=== PATIENT | male | born 2000 | race Caucasian/White ===

== ENCOUNTER 2018-02-18 18:22 | Observation (INO) ==
--- NOTE | 2018-02-18 18:41 | Emergency Department Note ---
Disposition Clinical Impression: Malaise and fatigue Concussion Qualifiers: Encounter type: initial encounter Loss of consciousness presence/duration: with LOC of 30 min or less Qualified Code(s): S06.0X1A - Concussion with loss of consciousness of 30 minutes or less, initial encounter Disposition: Admitted As Inpatient Condition: Undetermined Referrals: NONE,PCP [Primary Care Provider] - Forms: ED Satisfaction Letter Time of Disposition: 19:45 (Dr Schuster accepted him for Obs) Head Injury HPI - General Chief complaint: ED Head Injury Stated complaint: head injury with vomiting Source: patient, family Limitations: no limitations Nursing Notes Reviewed: Yes Vital Signs Reviewed: Yes - History of Present Illness HPI Narrative: Patient is a pleasant 17-year-old male with no significant PMH who is presenting to [facility] Emergency Room with a chief complaint off concussion. Apparently patient was seen earlier today for the same reason please refer to the previous note for full documentation. Patient has a history of seizure once when he was a child otherwise since then he has been free from any seizure attack. Today he fell while he was walking because of the slipped floor. He had the right side of his forehead and lost consciousness for about 5-10 minutes. He left home with instructions to return back if the headache continues. CT scan earlier today revealed no intracranial hemorrhage. Patient returned back because off headache and vomiting. Repeated neurological exam is totally normal nonfocal. Patient denies any fever, chills or night sweats. Pt also denies any eye pain or visual disturbances. There is no sore throat, nasal drainages or facial congestion. There is no chest pain, palpitations or racing heart. Pt also denies any shortness of breath, cough or chest congestion. There is no abdominal pain, nausea, vomiting or diarrhea. There is no urgency, frequency or dysuria. There is no muskulo-skeletal pain, arthralgia or back pain. Patient also denies any rash, edema or pruritus. Other than the headache, no other neurological manifestations, no vertigo or weakness. The patient also denies any anxiety, depression, hallucinations and has no homicidal or suicidal ideations. There is no polyuria, polydipsia or recent weight change. There is no easy bruising or bleeding. Review of other systems is otherwise negative except above. Pt Subjective Complaint: head injury Onset (ago): hour(s) Mechanism of Injury: fall from ground level Place: home Loss of Consciousness: yes - Related Data Home Medications Medication Instructions Recorded Confirmed No Known Home Drugs 02/18/18 02/18/18 Allergies/Adverse reactions: Allergies Allergy/AdvReac Type Severity Reaction Status Date / Time No Known Allergies Allergy Verified 02/18/18 09:08 All systems ED: reviewed and negative except as stated. Review of Systems: As Per HPI Constitutional: Denies: fever, chills, weakness Eyes: Denies: eye pain, eye discharge ENT ED: Denies: ear pain, throat pain Cardiovascular: Denies: chest pain, palpitations Respiratory: Denies: cough, dyspnea Gastrointestinal: Denies: abdominal pain, nausea Genitourinary: Denies: urgency, dysuria, frequency Musculoskeletal: Denies: back pain, neck pain Integumentary: Denies: rash, abrasion, lesions Neurological: Reports: headache. Denies: weakness, numbness Past Medical History - Past Medical History Medical history: Reports: seizures Surgical history: Reports: no surgical history Psychiatric history: Reports: anxiety, bipolar - Social History Smoking Status: Current every day smoker Smokeless Tobacco Status: No Alcohol use: Reports: rarely, recent Drug use: Reports: none, marijuana Physical Exam - General Limitations: no limitations General appearance: alert, in no apparent distress - Head Head exam: atraumatic, normocephalic, normal inspection, other (there is a bony prominence lump on right foregead about nickel size) - Eye Eye exam: Present: normal appearance, PERRL, EOMI - Expanded Eye Exam Pupils: Bilateral: reactive Sclera/Conjunctival: bilateral: normal inspection Cornea: bilateral: Normal Inspection Posterior chamber: bilateral: normal inspection - ENT ENT exam: normal exam, normal oropharynx, mucous membranes moist - Expanded ENT Exam External ear exam: Present: normal external inspection Mouth exam: Present: normal external inspection Teeth exam: Present: normal inspection Throat exam: Present: normal inspection - Neck Neck exam: Present: normal inspection, full ROM, trachea midline - Chest Chest inspection: Present: normal inspection, symmetric chest wall rise - Respiratory Respiratory exam: Present: normal lung sounds bilaterally - Cardiovascular Cardiovascular exam: Present: regular rate, normal rhythm, normal heart sounds - Abdominal Exam Abdominal exam: Present: soft, Non-Tender. Absent: tenderness, distention, guarding, rebound, rigidity - Extremities Exam Extremities exam: Present: normal inspection, full ROM. Absent: tenderness, pedal edema - Expanded Upper Extremity Exam Shoulder exam: Present: normal inspection, full ROM Arm exam: Present: normal inspection, full ROM Elbow exam: Present: normal inspection, full ROM Forearm/Wrist exam: Present: normal inspection, full ROM Hand exam: Present: normal inspection, full ROM Vascular exam: Normal: capillary refill, radial pulse - Expanded Lower Extremity Exam Hip/Pelvis exam: Present: normal inspection, full ROM Upper leg exam: Present: normal inspection, full ROM Knee exam: Present: normal inspection, full ROM Lower leg exam: Present: normal inspection, full ROM Ankle exam: Present: normal inspection, full ROM Foot/toe exam: Present: normal inspection, full ROM Neurovascular/Tendon exam: Absent: motor deficit, sensory deficit, tendon deficit - Back Exam Back exam: Present: normal inspection, full ROM. Absent: tenderness - Neurological Exam Neurological exam: Present: alert, oriented X3, CN II-XII intact, normal gait - Expanded Neurological Exam Patient oriented to: Present: person, place, time Speech: Present: fluid speech Cranial nerves: EOM function (II, III, IV, ): Normal, facial sensation (V): Normal, facial palsy (VII): Normal, gag reflex (IX): Normal, spinal accessory function (XI): Normal, tongue deviation (XII): Normal Cerebellar function: finger to nose: Normal, heel to choudhury: Normal Motor strength - LUE: 5/5 Motor strength - RUE: 5/5 Motor strength - LLE: 5/5 Motor strength - RLE: 5/5 Sensory exam upper extremity: light touch: Normal Sensory exam lower extremity: light touch: Normal Coma Scale Eye Opening: Spontaneous Coma Scale Motor Response: Obeys Commands Coma Scale Verbal Response: Oriented Coma Scale Total: 15 - Psychiatric Psychiatric exam: Present: normal affect, normal mood - Skin Skin exam: Present: warm, dry, intact, normal color Course Vital Signs Temperature 97.5 F L 02/18/18 18:23 Pulse Rate 87 02/18/18 18:23 Respiratory Rate 18 02/18/18 18:23 Blood Pressure 137/86 02/18/18 18:23 O2 Sat by Pulse Oximetry 98 02/18/18 18:23 Temperature 97.5 F L 02/18/18 18:23 Pulse Rate 87 02/18/18 18:23 Respiratory Rate 18 02/18/18 18:23 Blood Pressure 137/86 02/18/18 18:23 O2 Sat by Pulse Oximetry 98 02/18/18 18:23 Oxygen Delivery Oxygen Delivery Room Air Head Injury - Differential Diagnosis Differential Diagnosis: Likely: concussion without loss of consciousness, closed head injury - Medical Records Medical records reviewed: Yes I reviewed the patient's medical records. - Lab Data Lab results reviewed: Yes I reviewed the patient's lab results. - Radiology Data Radiology results reviewed: Yes I reviewed the patient's radiology results.
[2018-02-18] MEDS ORDERED: Ondansetron 4 MG/2 ML VIAL IVP ONE (18:53)
[2018-02-18] MEDS ORDERED: 0.9 % Sodium Chloride 1,000 ML IVC ONE (18:53)
[2018-02-18 19:16] LABS: Hematocrit 47.1 % (37.5-50.1); Hemoglobin 16.6 g/dL (12.9-16.9); Mean Corpuscular HGB Conc 35.2 g/dL (31.6-35.5); Mean Corpuscular Hemoglobin 29.1 pg (28.0-33.3); Mean Corpuscular Volume 82.5 fL (83.0-100.0); Platelet Count 267 K/mcL (140-400); Red Blood Count 5.71 M/mcL (4.19-5.50); Red Cell Distribution Width 12.9 % (11.5-14.5)
[2018-02-18 19:30] LABS: Bilirubin,Urine Negative (Negative); Blood,Urine Trace-intact (Negative); Clarity,Urine Clear (Clear); Color,Urine Yellow (Yellow); Glucose,Urine (UA) Normal (Normal); Ketones,Urine Negative (Negative); Leukocyte Esterase,Urine Negative (Negative); Nitrite,Urine Negative (Negative); Protein,Urine >=300 mg/dL (Neg-Trace); Specific Gravity,Urine >= 1.030 (1.010-1.025); Urobilinogen,Urine Normal (Normal)
[2018-02-18 19:31] LABS: BUN/Creatinine Ratio 9 (6-26); Blood Urea Nitrogen 12 mg/dL (6-20); Calcium 10.1 mg/dL (8.6-10.3); Carbon Dioxide 28 mEq/L (23-29); Chloride 105 mEq/L (98-107); Glucose 101 mg/dL (70-105); Osmolality,Calculated 292 (280-300); Potassium 4.9 mEq/L (3.5-5.1); Sodium 141 mEq/L (136-145); eGFR For Non-African Americans > 60
[2018-02-18 19:48] LABS: Amphetamine Screen,Urine Negative ng/mL (Cutoff=1000); Barbiturate Screen,Urine Negative ng/mL (Cutoff=200); Benzodiazepines Screen,Urine Negative ng/mL (Cutoff=200); Cannabinoid Screen,Urine Positive ng/mL (Cutoff = 50); Cocaine Screen,Urine Negative ng/mL (Cutoff= 300); Opiate Screen,Urine Negative ng/mL (Cutoff=300); Phencyclidine Screen,Urine Negative ng/mL (Cutoff=25)
[2018-02-18 19:49] LABS: Squamous Epithelial Cell,Urine Few per lpf (None-Few); WBC,Urine 15-30 per hpf (0-3)
[2018-02-18 19:50] LABS: Uric Acid Crystals,Urine Present
[2018-02-18] MEDS ORDERED: Naloxone 0.4 MG/ML INJ IVP PRN (20:57)
[2018-02-18] MEDS ORDERED: Acetaminophen 325 MG TABLET PO PRN (21:14)
[2018-02-18] MEDS ORDERED: Ondansetron 4 MG/2 ML VIAL IVP PRN (21:15)
[2018-02-19 06:39] LABS: Basophils # 0.1 K/mcL (0.0-0.2); Basophils % 0.5 %; Eosinophils # 0.1 K/mcL (0.0-0.6); Eosinophils % 0.7 %; Hematocrit 42.3 % (37.5-50.1); Hemoglobin 14.7 g/dL (12.9-16.9); Immature Granulocytes % 0.4 % (0-4); Lymphocytes # 2.2 K/mcL (0.6-4.6); Lymphocytes % 20.2 %; Mean Corpuscular HGB Conc 34.8 g/dL (31.6-35.5); Mean Corpuscular Hemoglobin 29.1 pg (28.0-33.3); Mean Corpuscular Volume 83.6 fL (83.0-100.0); Mean Platelet Volume 11.1 fL (9.4-12.4); Monocytes # 0.8 K/mcL (0.0-1.3); Monocytes % 7.4 %; Neutrophils # 7.7 K/mcL (1.6-8.9); Platelet Count 255 K/mcL (140-400); Red Blood Count 5.06 M/mcL (4.19-5.50); Red Cell Distribution Width 13.2 % (11.5-14.5); Segmented Neutrophils % 70.8 %
[2018-02-19] MEDS: *HR* HYDROcodone/Acet 5/325 mg TABLET PO PRN ×3 (06:48→14:23)
[2018-02-19 07:02] LABS: Blood Urea Nitrogen 12 mg/dL (6-20); Calcium 9.4 mg/dL (8.6-10.3); Carbon Dioxide 27 mEq/L (23-29); Chloride 108 mEq/L (98-107); Glucose 96 mg/dL (70-105); Magnesium 1.6 mg/dL (1.6-2.6); Osmolality,Calculated 294 (280-300); Potassium 4.3 mEq/L (3.5-5.1); Sodium 142 mEq/L (136-145)
[2018-02-19 07:04] LABS: BUN/Creatinine Ratio 9 (6-26); eGFR For Non-African Americans > 60
[2018-02-19 14:35] VITALS: BP 127/65
--- NOTE | 2018-02-19 15:39 | Internal Med History&Physical ---
Date of Encounter: 02/19/18 Time of Encounter: 15:05 Assessment and Plan (1) Concussion with loss of consciousness Current visit: No Status: Acute No new symptoms have occurred. Headache has improved. Drug screen positive for THC. Qualifiers: Encounter type: initial encounter Qualified Code(s): S06.0X9A - Concussion with loss of consciousness of unspecified duration, initial encounter (2) Leukocytosis Current visit: Yes Status: Acute Now resolved. No left shift noted on follow-up labs. Qualifiers: Leukocytosis type: unspecified Qualified Code(s): D72.829 - Elevated white blood cell count, unspecified Internal Medicine - H&P: HPI Chief complaint: Fall and head trauma Admitted From: Emergency Dept Plans for Post Hospital Care: Home History of present illness: Mr. Palacios is a 17 year old male who came to emergency room a second time after experiencing a fall at home. He reports he was on steps at his parents home earlier in the morning and slipped on a wet step. His right temporal area hit a corner of a step causing syncopal episode. After a short time (estimated 2 minutes) his mother found him on the ground and aroused him. No visible blood or lacerations were noted. He had a large right temporal area hematoma. He was brought to emergency room and evaluated. CT scan showed no intracranial abnormalities of concern. He was treated and discharged home. A short while later while at his girlfriend's house he had several episodes of vomiting and worsening headache. He returned to emergency room and was admitted to [facility] for ongoing care needs. He states he feels improved at present time and stable for discharge home. He reports no further vomiting since arriving at his hospital room. He reports his headache has lessened. He has tolerated 2 meals and ambulated to the bathroom without difficulty. Past Med Surg Social Fam HX - Past Medical History Medical history: seizures Additional medical history: Febrile Psychiatric history: anxiety, bipolar - Past Surgical History Surgical History: no surgical history - Social History Smoking Status: Current every day smoker Smokeless Tobacco Status: No Alcohol use: rarely, recent Drug use: marijuana - Family History Mother Hx Family Psychosocial Disorders: Yes (anxiety and bipolar) Father History Unknown: Yes Internal Medicine - H&P: Meds No Known Home Drugs 02/18/18 [History] 3 Allergy/AdvReac Type Severity Reaction Status Date / Time No Known Allergies Allergy Verified 02/18/18 09:08 All Systems PM: A 10-system review of systems was performed and is negative for pertinent findings except as documented above in the HPI. Review of systems: Gen.: He states his weight is stable the past few months Cardiovascular: He denies hypertension MT heart failure angina DVT or pulmonary embolus Respiratory: He has smoked since age 15. He denies chronic lung disease. GI: He denies disorders of his liver gallbladder or exocrine pancreas : He denies hematuria dysuria or kidney stones Neurologic: He had febrile seizure in infancy. He denies seizure since then or any falls syncope or strokes otherwise. Endocrine: He denies diabetes thyroid disease or hyperlipidemia Hematology/oncology: He denies blood disorders cancers or anemia Psychiatric: He has anxiety and bipolar disorder but is not receiving medication at this time [place] skeletal: He denies bone joint or muscle disorders. - Constitutional Vitals: Temp Pulse Resp BP Pulse Ox 98.3 F 62 16 127/65 98 02/19/18 14:00 02/19/18 14:00 02/19/18 14:00 02/19/18 14:00 02/19/18 14:00 Exam: Gen.: He is well-developed well-nourished male lying in bed who appears in no acute distress at present time HEENT: Head is normocephalic. He has a skin abrasion/contusion in the right temporal area with very minimal residual hematoma. Eyes: EOMI. There is no scleral icterus. Mouth: Mucosa is moist. Neck: Supple and nontender. There is no thyromegaly or adenopathy noted. Heart: Regular without murmurs gallops or ectopics Lungs: No wheezes or crackles are heard. Abdomen: Soft and nontender. No masses or guarding are noted. Extremities: There is no cyanosis edema or clubbing noted. Dorsalis pedis and posttibial pulses are 1-2 over 2 bilaterally. Neurologic: Mental status: He is talkative and a good historian. Cranial nerves : Smile is symmetric. Forehead wrinkles bilaterally. Tongue protrudes midline. EOMI. Motor: There is no pronator drift. He is able to lift both legs off the bed. Ankle flexion and extension strength is 2/2 bilaterally against resistance. Cerebellar: Finger to nose is intact bilaterally. Skin: Warm and dry Internal Med - H&P Results - Labs CBC & Chem 7: 02/19/18 05:41 02/19/18 05:41 Labs: Short CBC 02/19/18 Range/Units 05:41 WBC 10.9 (4.3-11.1) K/mcL Hgb 14.7 D (12.9-16.9) g/dL Hct 42.3 (37.5-50.1) % Plt Count 255 (140-400) K/mcL Neutrophils # 7.7 (1.6-8.9) K/mcL BMP 02/19/18 05:41 Sodium 142 Potassium 4.3 Chloride 108 H Carbon Dioxide 27 BUN 12 Creatinine 1.30 Glucose 96 Calcium 9.4 - VTE Reasons for not Prescribing Prophylaxis: Treatment not Indicated - Low risk for VTE
--- NOTE | 2018-02-19 15:49 | Discharge Summary ---
Date of Encounter: 02/19/18 Time of Encounter: 15:05 - Discharge Diagnosis (1) Concussion with loss of consciousness Priority: Primary Status: Acute Qualifiers: Encounter type: initial encounter Qualified Code(s): S06.0X9A - Concussion with loss of consciousness of unspecified duration, initial encounter (2) Leukocytosis Priority: Secondary Status: Resolved Qualifiers: Leukocytosis type: unspecified Qualified Code(s): D72.829 - Elevated white blood cell count, unspecified Hospital course: Mr. Palacios is a 17 year old male who came to emergency room a second time after experiencing a fall at home. He reports he was on steps at his parents home earlier in the morning and slipped on a wet step. His right temporal area hit a corner of a step causing syncopal episode. After a short time (estimated 2 minutes) his mother found him on the ground and aroused him. No visible blood or lacerations were noted. He reports a large right temporal area hematoma. He was brought to emergency room and evaluated. CT scan showed no intracranial abnormalities of concern. He was treated and discharged home. A short while later while at his girlfriend's house he had several episodes of vomiting and worsening headache. He returned to emergency room and was admitted to [facility] for ongoing care needs. Initial orders were written by the emergency room physician. I saw him on February 19 and performed the history and physical. He felt improved when I saw him and reported no further vomiting since admission. Headache had lessened. He felt stable for discharge home which I felt was reasonable. He will follow with a PCP at [facility] within 1 week. Follow-up lab work showed WBC normal with no left shift present. No further workup or treatment was done. - Time Spent with Patient Total time spent providing and/or coordinating discharge services: - Discharge Medications Home Medications: No Known Home Drugs 02/18/18 [History] Allergies/Adverse Reactions: 3 Allergy/AdvReac Type Severity Reaction Status Date / Time No Known Allergies Allergy Verified 02/18/18 09:08 Date of admission: 02/18/18 20:36 Primary care physician: PCP NONE - Constitutional Vitals: Temp Pulse Resp BP Pulse Ox 98.3 F 62 16 127/65 98 02/19/18 14:00 02/19/18 14:00 02/19/18 14:00 02/19/18 14:00 02/19/18 14:00 - Patient Status Disposition: Home, Self-Care Condition: Undetermined - Discharge Instructions Follow Up With: NONE,PCP [Primary Care Provider] - 1 week - Diet and Activity Activity: resume usual activities as tolerated Diet: advance to your usual diet - VTE Reasons for not Prescribing Prophylaxis: Treatment not Indicated - Low risk for VTE
== END 2018-02-19 16:25 | disposition home or self-care (01) ==
LOC: INPPIK 18:22 → EMEROOPIK 18:22 → INPPIK 20:56
PROVIDERS: ADMIT Internal Medicine; ATTEND Internal Medicine